=== PATIENT | female | born 1990 | race Caucasian/White ===

== ENCOUNTER 2019-10-02 15:12 | Outpatient (CLI) | payer BC ==
--- NOTE | 2019-10-02 16:30 | XRAY Report ---
Reason: SCREENING FOR PULMONARY TB Procedure Date: 10/02/2019 Accession Number: [id number] / [id number] Procedure: XR - Chest 2 View X-Ray CPT Code: 55515 Final Report FULL RESULT: EXAM: CHEST RADIOGRAPHY EXAM DATE: 10/02/2019 03:30 PM. CLINICAL HISTORY: SCREENING FOR PULMONARY TB. COMPARISON: XR CHEST PA AND LAT 06/15/2012 7:24 AM. TECHNIQUE: 2 views. FINDINGS: Lungs/Pleura: No focal opacities evident. No pleural effusion. No pneumothorax. Normal volumes. Mediastinum: Heart and mediastinal contours are unremarkable. Other: None. IMPRESSION: No radiographic evidence of acute or chronic cardiopulmonary disease. Specifically, no radiographic evidence of active pulmonary tuberculosis. [facility]
== END 2019-10-02 15:13 | disposition home or self-care (01) ==
LOC: DI 15:12
PROVIDERS: ATTEND Family Medicine
DX: Z11.1 Encounter for screening for respiratory tuberculosis (principal)
CPT/HCPCS: 71046